=== PATIENT | male | born 1960 | race Caucasian/White ===

== ENCOUNTER 2017-01-05 19:51 | Emergency (ER) | payer OTHER ==
--- NOTE | 2017-01-05 20:37 | RAD ---
CHEST TWO VIEW 01/05/17 HISTORY: Cough. COMPARISON: None. FINDINGS: The lungs are clear. No pneumothorax or effusion. The cardiac silhouette and mediastinal contours ar e within normal limits. IMPRESSION: 1. No acute cardiopulmonary process. 2. Focal nodular opacity is only seen on the lateral radiograph and could be superimposition of multiple pulmonary vessels and followup two views in six months recommended. POS: [facility]
== END 2017-01-05 20:50 | disposition home or self-care (01) ==
LOC: MADERS 19:51
DX: J06.9 Acute upper respiratory infection, unspecified (principal); I10 Essential (primary) hypertension
CPT/HCPCS: 71020